=== PATIENT | male | born 1960 | race Caucasian/White ===

== ENCOUNTER 2020-08-05 09:16 | Emergency (ER) | payer MEDICARE ==
[~2020-08-05] VITALS: Ht 182.9 cm; Wt 79.5 kg
--- NOTE | 2020-08-05 09:24 | NUR ---
JOHN FRANCE FROM HOME. LOWER BACK PAIN/L SIDED SCIATICA X1 WEEK. SEEN AT [facility] MULTIPLE TIMES FOR SAME COMPLAINT, INCLUDING LAST NIGHT. IV PLACED BY EMS AND PT MEDICATED WITH 2.5MG VERSED, 100MCG FENTANYL, AND 4MG ZOFRAN EN ROUTE. PT MAKING VULGAR/HOSTILE COMMENTS TO STAFF AT TIMES. ERP AT BS IMMEDIATELY UPON ARRIVAL. Addendum: 08/05/20 at 0954 by MARY PT REPORTS L LOWER LEG/L FOOT NUMBNESS WELL.
--- NOTE | 2020-08-05 10:00 | NUR ---
PT MOANING, ROLLING AROUND IN BED D/T PAIN. ERP WAS IN FOR RECHECK AND RV'WD PLAN FOR MRI WITH PT.
[2020-08-05] MEDS ORDERED: DIAZEPAM 5 MG/ML, 2ML ONE ×2 (10:22→12:54)
[2020-08-05] MEDS ORDERED: KETOROLAC 30 MG/1 ML ONE (10:22)
[2020-08-05] MEDS ORDERED: MORPHINE SULFATE 4 MG/ML, 1ML ONE (10:23)
[2020-08-05] MEDS ORDERED: MORPHINE SULFATE 4 MG/ML, 1ML IVPush ONE (10:30)
[2020-08-05] MEDS ORDERED: DIAZEPAM 5 MG/ML, 2ML IVPush ONE (10:30)
[2020-08-05] MEDS ORDERED: KETOROLAC 30 MG/1 ML IVPush ONE (10:30)
--- NOTE | 2020-08-05 10:41 | NUR ---
PT SITTING IN A CHAIR AT SIDE OF BED, STATES IT'S TOO PAINFUL TO LIE DOWN. MEDICATED PER ORDERS. RV'WD POC WITH PT.
--- NOTE | 2020-08-05 10:46 | NUR ---
PT TO MRI VIA [facility].
--- NOTE | 2020-08-05 11:40 | NUR ---
PT BACK FROM MRI. VERBALIZED PAIN RELIEF AFTER MORPHINE. NOW REQUESTING "LIDOCAINE CREAM" FOR POSTERIOR L LEG PAIN.
--- NOTE | 2020-08-05 11:53 | NUR ---
ERP AT FOR RECHECK.
--- NOTE | 2020-08-05 12:57 | NUR ---
WENT IN TO DISCHARGE PT AND HE WAS MOANING, IN SEVERE DISTRESS, STATES UNABLE TO STAND/WALK AGAIN D/T PAIN. MEDICATED WITH VALIUM ORDERED. WILL MONITOR PT PRIOR TO DISCHARGING.
[2020-08-05 13:00] VITALS: BP 123/71
--- NOTE | 2020-08-05 13:36 | NUR ---
PT VERBALIZES RELIEF AFTER VALIUM. D/C INSTRUCTIONS, MEDS & F/U APPT RV'WD WITH PT, HE VERBALIZES UNDERSTANDING. RX GIVEN X3. PERCOCET RX SENT TO PHARMACY. ASSISTED PT OUT OF ED VIA WC; PT STATES HE WILL TAKE AN UBER HOME.
== END 2020-08-05 13:37 | disposition home or self-care (01) ==
LOC: ED 09:35
DX: M47.26 Other spondylosis with radiculopathy, lumbar region (principal); M54.42 Lumbago with sciatica, left side
CPT/HCPCS: 72148; 96374; 96375; 99284; J1885; J2270; J3360